=== PATIENT | female | born 1985 | race Caucasian/White ===

== ENCOUNTER 2017-04-09 11:55 | Day surgery (SDC) | payer OTHER ==
[2017-04-09 14:09] LABS: HEMATOCRIT 42.6 % (36.0-48.0); HEMOGLOBIN 13.8 g/dL (12-16); MCH 27.7 pg (26.0-34.0); MCHC 32.4 g/dL (31.0-37.0); MCV 85.5 fL (80.0-100.0); MEAN PLATELET VOLUME 11.2 fL (7.4-10.4); RBC 4.98 10x6/uL (4.00-5.40); RDW 13.1 % (11.5-14.5); WBC 9.2 10x3/uL (4.8-10.8)
[2017-04-09] MEDS ORDERED: HUMALOG 30100 UNITS/ SC (14:24)
[2017-04-09] MEDS ORDERED: ULTRAM50 MG PO (14:25)
[2017-04-09] MEDS ORDERED: LITHIUM CARBON300 M3 PO (14:25)
[2017-04-09] MEDS ORDERED: GLUCOPHAGE1000 MG PO (14:25)
[2017-04-09] MEDS ORDERED: TENORMIN50 MG PO (14:25)
[2017-04-09] MEDS ORDERED: ZOLOFT50 MG PO (14:25)
[2017-04-09] MEDS ORDERED: LAMICTAL200 MG PO (14:26)
[2017-04-09] MEDS ORDERED: SINGULAIR10 MG PO (14:26)
[2017-04-09] MEDS ORDERED: TRAZODONE HCL150 MG PO (14:26)
[2017-04-09] MEDS ORDERED: LISINOPRIL TAB 10M (14:26)
[2017-04-09] MEDS ORDERED: OMEPRAZOLE CAP 20M (14:27)
[2017-04-09] MEDS ORDERED: ZOFRAN4 MG PO (14:27)
[2017-04-09 14:28] VITALS: BP 122/73; BMI 55.0
[2017-04-09 14:56] LABS: HCG SERUM NEGATIVE (NEGATIVE)
[2017-04-09 14:59] LABS: CALC OSMOLALITY 276 mosm/kg (275-300); CALCIUM 9.3 mg/dL (8.5-10.1); CARBON DIOXIDE 21.5 mmol/L (21.0-32.0); CHLORIDE - SERUM 98 mmol/L (98-107); CREATININE - SERUM 0.7 mg/dL (0.6-1.3); GLUCOSE 274 mg/dL (74-106); POTASSIUM - SERUM 4.3 mmol/L (3.5-5.1); SODIUM 134 mmol/L (136-145); UREA NITROGEN 9 mg/dL (7-18); eGFR NON AFRICAN AMERICAN > 90 mL/min (90-120)
--- NOTE | 2017-04-09 16:11 | NUR ---
MD REQUESTING HOT BIOPSY FORCED FOR SMALLER CUT BIOPSY.
--- NOTE | 2017-04-09 17:25 | NUR ---
1625- PT BACK TO ROOM WITH HOB ELEVATED. VSS 1655- FULL LIQUIDS TOLERATED. IV D/C'D, CATHETER INTACT. 1710- DISCHARGE INSTRUCTIONS COMPLETED. PT VERBALIZES UNDERSTANDING. PAPERWORK SIGNED. 1715- PT DISCHARGED VIA WHEELCHAIR WITH .
--- NOTE | 2017-04-13 18:22 | OP ---
PATIENT NAME: MIKE MEDINA MEDICAL RECORD: [id number] :81 LOCATION:[facility] ADMISSION DATE: SURGEON: JOHN CHAVEZ MD DATE OF OPERATION: 04/09/2017 PROCEDURE: Colonoscopy with biopsy. REFERRING PHYSICIAN: TEVIN Springer in [place]. INDICATIONS: Ms. Medina is a pleasant 31-year-old woman with history of heartburn, nausea and diarrhea, left-sided abdominal pain and hematochezia. CT scan of the abdomen and pelvis 02/04/2017 showed an enlarged fatty liver, a complex cystic left adnexal mass measuring 10.4 cm in size (she is scheduled for hysterectomy with Dr. Cynthia Trammell on 04/21/2017). She presents for outpatient colonoscopy. PREMEDICATIONS: Total IV anesthesia (propofol 400 mg), obstructive sleep apnea, diabetes mellitus, asthma, bipolar disorder and BMI of 55. INSTRUMENT: Olympus video colonoscope. PROCEDURE AND FINDINGS: After receiving informed consent, Ms. Medina was placed in left lateral decubitus position and sedated as per anesthesia. After achieving adequate level of sedation, digital rectal exam was performed that showed no external hemorrhoidal tags, fissures or fistulas, normal sphincter tone, no palpable rectal masses. The colonoscope was introduced per rectally and advanced to the cecum without difficulty. The cecum, IC valve, and appendiceal orifice were identified. The terminal ileum was intubated and the distal small bowel mucosa was without erythema or ulcers. Biopsies were taken from the terminal ileum. There is minimal patchy erythema in the ascending colon and ascending colonic biopsies were obtained. There was a small amount of liquid stool scattered throughout the colon, which was aspirated and collected for study. No polyps, masses or diverticula were noted. Retroflexion in rectum showed minimal internal hemorrhoids. A fair to good prep was present. Ms. Medina tolerated the procedure well with no immediate complications. Colonic withdrawal time was 7 minutes. ASSESSMENT: 1. Normal terminal ileum mucosa, status post biopsy. 2. Minimal patchy erythema involving the ascending colon, likely prep related to rule out microscopic colitis, status post biopsy. 3. Minimal internal hemorrhoids, source of hematochezia. RECOMMENDATIONS: 1. Followup histopathology. 2. Stool will be sent for studies. 3. Screening colonoscopy at age 48. TRANSINT:[id number] Voice Confirmation ID: [id number] DOCUMENT ID: [id number] OPERATIVE REPORT [id number] MIKE MEDINA TERRI MD at 1822 CC: DAHIANA ACIN [id number] DICTATION DATE: 04/09/171627 HEARING THERAPY DIRECTOR: 04/09/171931 [facility] 04/09/17 [place] [id number] [place] [id number]
== END 2017-04-09 17:15 | disposition home or self-care (01) ==
LOC: D.OPS 11:55
PROVIDERS: Anesthesiology; Internal Medicine Gastroenterology
DX: K92.1 Melena (principal); K76.0 Fatty (change of) liver, not elsewhere classified; R19.7 Diarrhea, unspecified; Z01.812 Encounter for preprocedural laboratory examination; J45.909 Unspecified asthma, uncomplicated; I10 Essential (primary) hypertension; E11.9 Type 2 diabetes mellitus without complications; G47.30 Sleep apnea, unspecified; K21.9 Gastro-esophageal reflux disease without esophagitis; E66.01 Morbid (severe) obesity due to excess calories; Z68.43 Body mass index [BMI] 50.0-59.9, adult